=== PATIENT | male | born 1955 | race Caucasian/White ===

== ENCOUNTER 2025-04-29 23:03 | Observation (INO) ==
[2025-04-29 23:32] LABS: Basophils #(Absolute) Auto 0.1 (0.0-0.1); Basophils%(Percent) Auto 0.4 (0.0-1.3); Eosinophils#(Absolute)Auto 0.2 (0.0-0.3); Eosinophils%(Percent) Auto 1.5 % (0.0-4.0); Granulocytes % - Auto 74.2 % (49.1-73.1); Granulocytes#(Absolute)- Auto 11.2 (2.0-6.2); Hematocrit 35.5 % (41.3-50.1); Mean Corpuscular Volume 85.9 fl (81.9-96.5); Monocytes #(Absolute)- Auto 0.9 (0.2-0.8); Monocytes %(Percent)- Auto 6.2 % (4.5-10.7); Platelet Count 286 K/uL (142-355); White Blood Count 15.1 K/uL (3.7-9.6)
[2025-04-29] MEDS: IPRATROPIUM/ALBUTEROL SULFATE 3 ML AMPUL.NEB INH ONE (23:33)
[2025-04-29 23:38] LABS: Base Excess ABG 1.8 mmo1/L (-2-2); Oxygen Saturation ABG 97 % (92-100); PCO2 ABG 37 mmHg (35-45); PO2 ABG 90 mmHg (60-100); pH ABG 7.45 (7.35-7.45)
[2025-04-29 23:42] LABS: Potassium 4.2 mmol/L (3.6-5.2)
[2025-04-30] MEDS: HALOPERIDOL LACTATE 5 MG/ML VIAL IVP ONE (01:06)
[2025-04-30] MEDS ORDERED: ONDANSETRON HCL/PF 4 MG/2 ML VIAL INJ PRN (01:07)
[2025-04-30] MEDS ORDERED: ACETAMINOPHEN 500 MG TABLET PO PRN (01:07)
[2025-04-30] MEDS ORDERED: IBUPROFEN 800 MG TABLET PO PRN (01:07)
[2025-04-30] MEDS ORDERED: [UNRECOGNIZED DRUG - OTHER] PO SCH (01:30)
[2025-04-30] MEDS ORDERED: METHYLPREDNISOLONE 4 MG PO SCH (01:30)
--- NOTE | 2025-04-30 02:00 | Emergency Department Note ---
HPI - SOB/Dyspnea General Chief Complaint: SOB -Shortness of Breath Stated Complaint: SOB Time Seen by Provider: 04/29/25 23:15 Source: patient and EMS Mode of arrival: ambulance History of Present Illness HPI Narrative: 69 yo male presents via EMS with increasing dyspnea after being seen in the ED on 04/28/25 and being diagnosed with PNA, Patient states he feels as if he is unable to "take a 100% breath". Patient states he has started his medications he was prescribed but "they just aren't doing any good, I tell you they aren't doing any good". Patient appears extremely anxious, agitated, and angry at staff for no apparent reasoning. MD elicited complaint: Reports shortness of breath, pain with inspiration and anxiety Pertinent past history: Reports pneumonia Onset (ago): day(s) Context: Reports recent illness Timing: Reports constant Severity: moderate Exacerbating factors: Reports other (everything makes it worse. ) Relieving factors: Reports nothing Related Data Home oxygen amount: other (Patient is currently maintaining saturations of 96- 100% on RA, without respiratory distress or increased work of breathing. ) Home Medications Medication Instructions Recorded Confirmed carvedilol 3.125 mg tablet 3.125 mg PO BID 05/05/24 furosemide 40 mg tablet 40 mg PO DAILY 05/05/2404/19 hydralazine 25 mg tablet 25 mg PO BID 05/05/24 losartan 25 mg tablet 25 mg PO DAILY 05/05/2404/19 spironolactone 25 mg tablet 25 mg PO DAILY 05/05/24 Previous Rx's Medication Instructions Recorded levofloxacin 750 mg tablet 750 mg PO DAILY PNEUMONIA 7 days 04/28/25 #7 tabs methylprednisolone 4 mg tablets in See Rx Instructions PO .COMPLEX 04/28/25 a dose pack (Medrol (Anthony)) #21 ea Allergies Allergy/AdvReac Type Severity Reaction Status Date / Time No Known Drug Allergies Allergy Verified 04/28/25 04:19 Review of Systems Status of ROS 10 or more systems reviewed and unremark able except as noted in history and below Respiratory Reports: shortness of breath and pain on inspiration PFSH PFS Medical History COPD (chronic obstructive pulmonary disease) Congestive heart failure HTN (hypertension) Surgical History No history of previous surgery Social History Smoking status: current every day smoker What tobacco products do you use: cigarettes Packs per day: 1 Within the past year, how often did you have a drink containing alcohol: never Score interpretation: A score less than 4 is consistent with normal alcohol consumption. Non-prescribed substance use: cannabis (any form) What is your current living situation: I presently have a place to live Problems where you live: no known problems In the past 12 months, utilities in danger of being shut off: no In past 12 months, lack of transportation kept you from medical appts, meetings, work, or getting things needed for daily living: No How hard is it for you to pay for the very basics like food, housing, medical ca re, and heating: somewhat hard Past 12 mos, fear food will run out before able to buy more: never true In past 12 months, food didn't last until money to buy more: never true Are you following a diet prescribed by a doctor: No Are you following a special diet: No Do you want help finding or keeping work or a job: I do not need or want help Known occupational exposures/hazards: No Exam Exam: 69 yo male presents to ED extremely anxi ous, agitated, and angry in no acute respiratory distress, displaying no increased work of breathing, or nasal flaring. Constitutional: normal general appearance, no apparent distress and alert Vital Signs - 24 hr 04/29/25 23:17 04/29/25 23:34 Temperature 98.4 F Pulse Rate 90 Respiratory Rate 22 Blood Pressure 180/95 Pulse Oximetry 96 97 Oxygen Delivery Me thod Room Air HENMT: normocephalic, head/scalp atraumatic, hearing grossly normal bilaterally, external ears normal, nasal mucous membranes normal, external nose normal, oral mucous membranes normal and oropharynx normal Eyes: PERRL, EOMs intact bilaterally and conjunctivae normal Neck/C-Spine: visual inspection normal and trachea midline Lymph: no lymphadenopathy noted Chest: inspection of chest normal Respiratory: breath sounds decreased in the lower lobes bilaterally, No audible rhonchi, increased work of breathing accessory muscle usage or nasal flaring. Cardiovascular: normal heart rate noted, regular rhythm noted, no gallop, no rub, no murmur, no JVD and no clicks Gastrointestinal: abdomen normal to inspection, abdomen soft to palpation, nontender to palpation, nondistended, no masses, no pulsatile mass, no ascites and no hernia Genitourinary: no CVA tenderness Back/Pelvis: spine normal to inspection Extremities: normal to inspection, normal to palpation, no tenderness, full ROM, no joint enlargement and no deformity Neurology: no movement abnormality noted, gait normal, speech normal, coordination normal and GCS normal Psychiatry: anxious, and agitated for no apparent reason. Patient is being verbally harsh with all staff members. Course Course Hospital Course: Heplock labs ekg cxr abg IV medication Breathing txt admission. Vital Signs Vital signs: Vital Signs Temperature 98.4 F 04/29/25 23:17 Pulse Rate 90 04/29/25 23:17 Respiratory Rate 22 04/29/25 23:17 Blood Pressure 180/95 04/29/25 23:17 Pulse Oximetry 96 04/29/25 23:17 Oxygen Delivery Method Room Air 04/29/25 23:17 Temperature 98.4 F 04/29/25 23:17 Pulse Rate 90 04/29/25 23:17 Respiratory Rate 22 04/29/25 23:17 Blood Pressure 180/95 04/29/25 23:17 Pulse Oximetry 97 04/29/25 23:34 Oxygen Delivery Method Room Air 04/29/25 23:17 MDM - SOB/Dyspnea MDM Narrative Medical decision making narrative: PNA with failed outpatient treatment, PE SC, Respiratory failure, COPD, CHF ACute coronary syndrome Anxiety, Agitation, Differential Diagnosis Differential diagnosis: Likely acute exacerbation of chronic obstructive airways disease, congestive heart failure, community acquired pneumonia, asthma with exacerbation and pulmonary embolism Medical Records Attestation: I reviewed the patient's medical records. Lab Data Attestation: I reviewed the patient's lab results. Labs: Lab Results 04/29/25 04/29/25 04/29/25 Range/Units 23:18 23:18 23:20 WBC 15.1 H (3.7-9.6) K/uL RBC 4.1 L (4.40-5.80) M/uL Hgb 11.3 L (14.0-17.4) gm/dL Hct 35.5 L (41.3-50.1) % MCV 85.9 (81.9-96.5) fl MCH 27.4 L (27.6-33.7) pg MCHC 31.9 L (33.0-35.7) g/dl RDW 16.5 H (11.0-14.8) % Plt Count 286 (142-355) K/uL MPV 8.0 (6.0-10.4) fl Gran % 74.2 H (49.1-73.1) % Lymph % (Auto) 17.7 (17.6-39.05) % [place] % (Auto) 6.2 (4.5-10.7) % Eos % (Auto) 1.5 (0.0-4.0) % Baso % (Auto) 0.4 (0.0-1.3) Lymph # (Auto) 2.7 (0.8-2.9) [place] # (Auto) 0.9 H (0.2-0.8) Eos # (Auto) 0.2 (0.0-0.3) Baso # (Auto) 0.1 (0.0-0.1) Absolute Gran (auto) 11.2 H (2.0-6.2) D-Dimer 2290 H (100-600) ng/mL ABG pH 7.45 (7.35-7.45) ABG pCO2 37 (35-45) mmHg ABG pO2 90 103 (60-100) mmHg ABG PO2/FiO2 Ratio 0.87 ABG HCO3 25.7 (22-26) mmo1/L ABG Total CO2 26.8 mmo1/L ABG O2 Saturation 97 (92-100) % ABG Base Excess 1.8 (-2-2) mmo1/L A-a O2 Gradient 13 mmHg Respiratory Index 0.1 (0-1) FiO2 21 % Sodium 141 (136-145) mmol/L Potassium 4.2 (3.6-5.2) mmol/L Chloride 106.0 (98-107) mmol/L Carbon Dioxide 27 (21-32) mmol/L Anion Gap 8.0 (4-14) mEq/L BUN 25 H (7-18) mg/dL Creatinine 1.8 H (0.6-1.3) mg/dL Estimated GFR 40.0 (>59.9) Glucose 105 (70-110) mg/dL Calcium 8.9 (8.5-10.1) mg/dL Total Bilirubin 0.48 (0.0-1.0) mg/dL AST 29 (15-37) U/L ALT 35 (30-65) U/L Alkaline Phosphatase 54 (50-136) U/L Total Protein 7.0 (6.4-8.2) g/dL Albumin 3.1 L (3.4-5.0) g/dL COVID-19 ([facility]) Not detected (Not Detectd) Respiratory Virus Ag Negative (Negative) ABG Data Interpretation: Primary respiratory alkalosis, chronic Imaging Data Imaging ordered: Chest x-ray Attestation: I personally reviewed and interpreted this imaging study as follows: My impression: worsening consolidation in the right lower lobes Discharge Plan Discharge Patient Disposition: Admitted As Observation Clinical Impression: Community acquired pneumonia, Acute dyspnea, Agitation states as acute reaction to exceptional (gross) stress, Anxiety Time of Disposition: 01:06
[2025-04-30] MEDS: LORazepam 1 MG TABLET PO ONE (04:48)
[2025-04-30] MEDS: FUROSEMIDE 20 MG/2 ML VIAL IV ONE (06:09)
[2025-04-30] MEDS: CEFTRIAXONE SODIUM 1 GM in 0.9 % SODIUM CHLORIDE MB+ 50 ML IV ONE (06:27)
[2025-04-30] MEDS ORDERED: 0.9 % SODIUM CHLORIDE 250 ML IV ONE (06:43)
[2025-04-30] MEDS ORDERED: VANCOMYCIN HCL 1,000 MG VIAL IV ONE (06:43)
[2025-04-30] MEDS: VANCOMYCIN HCL 1,000 MG in 0.9 % SODIUM CHLORIDE 250 ML IV SCH (06:44)
[2025-04-30 07:00] LABS: INR 1.08
[2025-04-30] MEDS: [UNRECOGNIZED DRUG - OTHER] IV SCH (07:48)
[2025-04-30] MEDS: ASPIRIN 325 MG TABLET PO SCH (08:46)
[2025-04-30] MEDS: NITROGLYCERIN 1 GM OINT...G. TD SCH (08:47)
[2025-04-30] MEDS: CLOPIDOGREL BISULFATE 75 MG TABLET PO SCH (08:47)
[2025-04-30] MEDS ORDERED: SPIRONOLACTONE 25 MG PO SCH (09:00)
[2025-04-30] MEDS: LOSARTAN POTASSIUM 50 MG TABLET PO SCH (09:14)
[2025-04-30] MEDS: HYDRALAZINE HCL 25 MG TABLET PO SCH (09:15)
[2025-04-30] MEDS: FUROSEMIDE 40 MG TABLET PO SCH (09:16)
[2025-04-30] MEDS: PANTOPRAZOLE SODIUM 40 MG TABLET.DR PO SCH (09:16)
[2025-04-30] MEDS: SPIRONOLACTONE 50 MG TABLET PO SCH (09:17)
[2025-04-30] MEDS: carvediloL 3.125 MG TABLET PO SCH (09:19)
--- NOTE | 2025-04-30 09:25 | Short Stay Summary ---
H&P: HPI History of Present Illness Chief complaint: PNA with failed outpatient treatment, dyspnea, michael Narrative: 69-year-old patient came into the ER with a weeklong history of shortness of breath especially when he is riding his bicycle. Was seen in the ER on 04/28/2025 was slightly to be admitted at that time he left AMA stating he was not going to stay. Returned on 612 for continued shortness of breath and difficulty breathing and a feeling of impending doom. Patient states that he is urinating okay is taking his water pills as blood pressure medicine without any relief of his symptoms. He continues to smoke at least a pack a day as well as alcohol and other recreational drugs. Admits to cocaine use last time he is not certain may have been mixed with his roll about 2-3 days ago. Patient carlos manuel defensive about alcohol and drug use. Review of Systems Status of ROS 10 or more systems reviewed and unremark able except as noted in history and below Constitutional Reports: change in weight, fatigue, malaise and change in sleep pattern; Denies: fever, chills or night sweats Eyes Denies: change in vision, blurry vision, blind spots, light sensitivity or eye discomfort Ears, nose, mouth, and throat Denies: throat pain, neck pain, throat swelling, difficulty swallowing, hoarseness, mouth pain or swelling of lips/tongue Cardiovascular Reports: chest pain (This a.m. started around 4 and continued shortness of breath), palpitations, swelling of feet/ankles, lightheadedness and shortness of breath with exertion Respiratory Reports: shortness of breath, cough and pain on inspiration; Denies: wheezing, stridor or change in phlegm color Gastrointestinal Reports: nausea, heartburn, constipation and bloating; Denies: abdominal pain, vomiting, coffee grounds in vomit, diarrhea or difficulty swallowing Genitourinary Denies: painful urination, urinary frequency, urinary urgency or blood in urine Musculoskeletal Reports: extremity swelling; Denies: back pain, neck pain, extremity pain, joint pain or limited range of motion Integumentary/Breast Denies: rash, itching, redness, skin pain, skin tenderness, skin swelling, sores or new lesion Neurological Reports: behavioral changes and difficulty communicating thoughts; Denies: headache, numbness in extremities, weakness in extremities, lack of coordination, dizziness, vertigo, confusion, slurred speech or seizure-like activity Psychiatric Reports: anxiety, panic attacks, hopelessness, irritability and difficulty concentrating; Denies: mood swings, change in sleep pattern, loss of interest, paranoia, memory loss, visual hallucinations, auditory hallucinations, tactile hallucinations, suicidal ideation or homicidal ideation Endocrine Reports: fatigue; Denies: excessive urination, excessive thirst or cold intolerance Hematologic/Lymphatic Denies: easy bruising, easy bleeding or enlarged lymph nodes Allergic/Immunologic Denies: hives, throat swelling, tongue swelling, facial swelling or wheezing [facility] Medical History (Updated 04/30/25 @ 09:49 by Brittney Forde DO) Chronic renal insufficiency, stage III (moderate) Nicotine dependence with current use Anxiety Hypertensive emergency Cocaine abuse ETOH abuse COPD (chronic obstructive pulmonary disease) Congestive heart failure HTN (hypertension) Surgical History No history of previous surgery Social History Smoking status: current every day smoker What tobacco products do you use: cigarettes Packs per day: 1 Within the past year, how often did you have a drink containing alcohol: never Score interpretation: A score less than 4 is consistent with normal alcohol consumption. Non-prescribed substance use: cannabis (any form) What is your current living situation: I presently have a place to live Problems where you live: no known problems In the past 12 months, utilities in danger of being shut off: no In past 12 months, lack of transportation kept you from medical appts, meetings, work, or getting things needed for daily living: No How hard is it for you to pay for the very basics like food, housing, medical care, and heating: somewhat hard Past 12 mos, fear food will run out before able to buy more: never true In past 12 months, food didn't last until money to buy more: never true Are you following a diet prescribed by a doctor: No Are you following a special diet: No Do you want help finding or keeping work or a job: I do not need or want help Known occupational exposures/hazards: No Highest level of school completed/degree received: high school Feel stressed/tense/nervous/anxious/difficulty sleeping: not at all Life stressor details: His current medical condition Gender Identity: male Meds Home Medications and Allergies Home Medications Medication Instructions Recorded Confirmed Type carvedilol 3.125 mg tablet 3.125 mg PO BID 05/05/24 History furosemide 40 mg tablet 40 mg PO DAILY 05/05/2404/19 History hydralazine 25 mg tablet 25 mg PO BID 05/05/24 History losartan 25 mg tablet 25 mg PO DAILY 05/05/2404/19 History spironolactone 25 mg tablet 25 mg PO DAILY 05/05/24 History levofloxacin 750 mg tablet 750 mg PO DAILY PNEUMONIA 7 days 04/28/25 04/30/25 Rx #7 tabs methylprednisolone 4 mg tablets in See Rx Instructions PO .COMPLEX 04/28/25 04/30/25 Rx a dose pack (Medrol (Anthony)) #21 ea Allergies Allergy/AdvReac Type Severity Reaction Status Date / Time No Known Drug Allergies Allergy Verified 04/28/25 04:19 Exam Exam: 69 yo male presents to ED extremely anxi ous, agitated, and angry in no acute respiratory distress, displaying no increased work of breathing, or nasal flaring. Constitutional: abnormal general appearance (disheveled), (chronically ill) and (frail appearing), distress noted (mild) and (respiratory), average body habitus, limitations noted (physical limitations) and level of alertness abnormal (lethargic) (ativan given to patient for anxiety and aggitation) Vital Signs - 24 hr 04/29/25 23:17 04/29/25 23:30 04/29/25 23:34 Temperature 98.4 F Pulse Rate 90 87 Pulse Rate [Bilate ral] Respiratory Rate 22 20 Blood Pressure 180/95 178/94 Blood Pressure [Le ft Arm] Pulse Oximetry 96 99 97 Oxygen Delivery Me thod Room Air Room Air Oxygen Flow Rate Fraction of Inspir ed Oxygen 04/30/25 00:00 04/30/25 00:30 04/30/25 01:00 Temperature Pulse Rate 90 85 84 Pulse Rate [Bilate ral] Respiratory Rate 19 20 19 Blood Pressure 169/90 188/90 180/95 Blood Pressure [Le ft Arm] Pulse Oximetry 96 96 96 Oxygen Delivery Me thod Room Air Room Air Room Air Oxygen Flow Rate Fraction of Inspir ed Oxygen 04/30/25 01:30 04/30/25 02:00 04/30/25 02:17 Temperature Pulse Rate 81 78 Pulse Rate [Bilate ral] Respiratory Rate 20 20 Blood Pressure 179/89 185/91 Blood Pressure [Le ft Arm] Pulse Oximetry 96 Oxygen Delivery Me thod Room Air Room Air Oxygen Flow Rate Fraction of Inspir ed Oxygen 04/30/25 03:44 04/30/25 05:02 04/30/25 08:00 Temperature 97.8 F 97.3 F L Pulse Rate Pulse Rate [Bilate ral] 84 80 Respiratory Rate 20 21 Blood Pressure Blood Pressure [Le ft Arm] 187/88 181/86 Pulse Oximetry 96 97 98 Oxygen Delivery Me thod Room Air Nasal Cannula Nasal Cannula Oxygen Flow Rate 3 3 Fraction of Inspir ed Oxygen 32 04/30/25 08:47 Temperature Pulse Rate Pulse Rate [Bilate ral] Respiratory Rate Blood Pressure 180/100 Blood Pressure [Le ft Arm] Pulse Oximetry Oxygen Delivery Me thod Oxygen Flow Rate Fraction of Inspir ed Oxygen HENMT: normocephalic, head/scalp atraumatic, hearing grossly normal bila terally, external ears normal, TMs abnormal, nasal mucous membranes normal, external nose normal, oral mucous membranes abnormal, oropharynx normal and dentition abnormal Eyes: PERRL, EOMs intact bilaterally, conjunctivae normal, no scleral icterus, papilledema noted and periorbital findings normal Neck/C-Spine: visual inspection normal and trachea midline Lymph: no lymphadenopathy noted and no lymphedema noted Chest: inspection of chest normal and palpation of chest normal Respiratory: breath sounds unequal, normal respiratory effort, auscultation abnormal (diminished breath sound) and (bronchial breath sounds), wheezing noted, no rales, no retractions and no use of accessory muscles breath sounds decreased in the lower lobes bilaterally, No audible rhonchi, increased work of breathing accessory muscle usage or nasal flaring. Cardiovascular: normal heart rate noted, rhythm abnormal (ectopic beats), no gallop, no rub, no murmur, no JVD, no clicks, peripheral pulses as noted: and no bruits noted Gastrointestinal: abdomen normal to inspection, abdomen soft to palpation, nontender to palpation, nondistended, normoactive bowel sounds, hepatosple nomegaly noted, ascites noted and no hernia Genitourinary: no CVA tenderness and bladder normal to palpation Back/Pelvis: spine abnormal to inspection, no thoracic spine tenderness, no lumbar spine tenderness, thoracic spine ROM normal and lumbar spine ROM normal Extremities: abnormal to inspection (patient reports swellign but not noted on exam), normal to palpation, no tenderness, full ROM, joint enlargement noted and no deformity Neurology: recreation therapy aide II-XII intact, no movement abnormality noted, no focal motor deficit noted, sensory deficit noted, gait normal, speech abnormality noted (slurred), coordination normal, no pronator drift noted and GCS normal Psychiatry: Mental Status Exam documented within this Exam's Psych section mental status abnormal, oriented x3, thought process abnormality noted, uncooperative, affect abnormality noted (anxious) and psychomotor abnormality noted (agitated) and (restless) anxious, and agitated for no apparent reason. Patient is being verbally harsh with all staff members. Feel stressed/tense/nervous/anxious/difficulty sleeping: decline to answer Skin: skin color abnormal Reports (pale), no rash, no lesions, ecchymosis noted, no wounds, no lacerations, skin turgor abnormal, no jaundice, no petechiae, no mottling, nails abnormality noted and alopecia noted Assessment and Plan Assessment and Plan (1) NSTEMI, initial episode of care: Code(s): I21.4 - Non-ST elevation (NSTEMI) myocardial infarction (2) Pneumonia: Qualifiers: Laterality: bilateral Lung location: unspecified part of lung Pneumonia type: due to unspecified organism Qualified Code(s): J18.9 - Pneumonia, unspecified organism Code(s): J18.9 - Pneumonia, unspecified organism (3) Hypertensive emergency: Code(s): I16.1 - Hypertensive emergency (4) Congestive heart failure: Qualifiers: Heart failure type: other Qualified Code(s): I50.9 - Heart failure, unspecified Code(s): I50.9 - Heart failure, unspecified (5) ETOH abuse: Code(s): F10.10 - Alcohol abuse, uncomplicated (6) Cocaine abuse: Code(s): F14.10 - Cocaine abuse, uncomplicated (7) HTN (hypertension): Qualifiers: Hypertension type: primary hypertension Qualified Code(s): I10 - Essential (primary) hypertension Code(s): I10 - Essential (primary) hypertension (8) Anxiety: Code(s): F41.9 - Anxiety disorder, unspecified (9) Nicotine dependence with current use: Code(s): F17.200 - Nicotine dependence, unspecified, uncomplicated (10) Encounter for smoking cessation counseling: Code(s): Z71.6 - Tobacco abuse counseling (11) Anemia: Qualifiers: Anemia type: other cause Other causes of anemia: other cause, not classified Qualified Code(s): D64.89 - Other specified anemias Code(s): D64.9 - Anemia, unspecified (12) Chronic renal insufficiency, stage III (moderate): Qualifiers: Chronic kidney disease stage 3 subtype: stage 3b (GFR 30-44) Qualified Code(s): N18.32 - Chronic kidney disease, stage 3b Code(s): N18.30 - Chronic kidney disease, stage 3 unspecified (13) Hypoalbuminemia: Code(s): E88.09 - Other disorders of plasma-protein metabolism, not elsewhere classified Plan Cardiac monitoring and continuous pulse ox Serial EKGs Serial troponins Rocephin 1 g IV daily Zithromax 500 mg IV daily DuoNebs every 6 hours Bumex IV 2 mg since he is on Lasix at home without success of removing effusions and work on decreasing blood pressure to help diurese better Nitro 1 inch in anterior chest wall Coreg 6.25 mg given this a.m. prior to transfer to [place] for NSTEMI and further evaluation and treatment With hydralazine 10 mg IV x 1 Gave patient his losartan 25 mg p.o. daily as well Diet n.p.o. in case taking to This a.m. Results Labs Labs: CBC 04/29/25 Range/Units 23:20 WBC 15.1 H (3.7-9.6) K/uL RBC 4.1 L (4.40-5.80) M/uL Hgb 11.3 L (14.0-17.4) gm/dL Hct 35.5 L (41.3-50.1) % Plt Count 286 (142-355) K/uL Gran % 74.2 H (49.1-73.1) % Lymph % (Auto) 17.7 (17.6-39.05) % [place] % (Auto) 6.2 (4.5-10.7) % Eos % (Auto) 1.5 (0.0-4.0) % Baso % (Auto) 0.4 (0.0-1.3) Lymph # (Auto) 2.7 (0.8-2.9) [place] # (Auto) 0.9 H (0.2-0.8) Eos # (Auto) 0.2 (0.0-0.3) Baso # (Auto) 0.1 (0.0-0.1) Absolute Gran (auto) 11.2 H (2.0-6.2) CMP 04/29/25 23:20 Sodium 141 Potassium 4.2 Chloride 106.0 Carbon Dioxide 27 BUN 25 H Creatinine 1.8 H Glucose 105 Calcium 8.9 Liver Function 04/29/25 Range/Units 23:20 Total Bilirubin 0.48 (0.0-1.0) mg/dL AST 29 (15-37) U/L ALT 35 (30-65) U/L Alkaline Phosphatase 54 (50-136) U/L Albumin 3.1 L (3.4-5.0) g/dL ABG ABG results: 04/29/25 23:18 ABG pH 7.45 ABG pCO2 37 ABG pO2 103 ABG HCO3 25.7 ABG Total CO2 26.8 ABG O2 Saturation 97 ABG Base Excess 1.8 Attestation: I have reviewed the pertinent ABG results. Pulse Oximetry Attestation: I have reviewed the pertinent pulse oximetry results. ECG Attestation: I have reviewed the pertinent ECG results. Prior ECG tracings: available for review Imaging Imaging ordered: Chest x-ray Radiologist's impression: FRONTAL AND LATERAL VIEW CHEST X-RAY HISTORY: Shortness of breath COMPARISON: 04/28/2025 FINDINGS: There is persistent multifocal consolidation seen in the bilateral lower lung zones which does not appear significantly changed from prior study. This is also seen is increased opacification of the retrocardiac space overlying the lower thoracic spine on the lateral view. The heart size is within normal limits. The mediastinum is unremarkable. There is no evidence of pleural effusion or gross pneumothorax. The trachea is midline. IMPRESSION: 1. There is persistent multifocal consolidation seen in the bilateral lower lung zones which does not appear significantly changed from prior study. This is also seen is increased opacification of the retrocardiac space overlying the lower thoracic spine on the lateral view. This may represent acute or chronic airspace disease. Follow-up to complete resolution may be obtained as clinically indicated. CTA scheduled for this am DS: Providers Provider Date of admission: 04/30/25 01:06 Primary care physician: ABIEL GAN MD Admitting clinician: Valdez Santos Attending physician on admission: Brittney Forde Attending physician on discharge: Brittney Forde Discharging clinician: Brittney Forde Anticipated date of discharge: 04/30/25 DS: Summary Hospital Course Hospital Course: Patient remained anxious on the ER for and in the hospital was given Ativan for anxiety and agitation developed chest pains were about 4:00 so troponin was obtained and an EKG which shows some ischemic changes in 6 of the leads as well as troponin elevation of 825. There Shelbieter discussed patient with a camera person who advised heparin. Eventually patient was started on nitro drip to help control his blood pressure as well as Nitropaste and hydralazine 10 mg IV Plavix 150 and aspirin 325 mg. The x-ray in the ER showed persistent multifocal consolidation in bilateral lower lung zones that have not improved or worsened since 04/28/2025 evaluation and has increased over opacification and retrocardiac space. Patient still remains agitated and difficult to work with throughout hospital stay to the medications needed for the NSTEMI SFR has remained agreeable to transfer to [place] for further evaluation and treatment Time spent discussing smoking cessation with patient: 3 to 10 minutes Status at Discharge Functional status at discharge: independent ambulation (altered secondary to ativan) Overall status at discharge: patient is not back to baseline Time Spent with Patient Time attestation: Total time spent providing and/or coordinating discharge services: 48 Time spent: greater than 30 minutes Discharge Plan Discharge Disposition: Xfer Short-Term Hosp Condition: Other Anticipated Discharge Date/Time: 04/30/25 09:47 Discharge Medications: No Action levofloxacin 750 mg tablet 750 mg PO DAILY 7 Days Qty: 7 0RF methylprednisolone [Medrol (Anthony)] 4 mg tablets,dose pack See Rx Instructions .ROUTE .COMPLEX Qty: 21 0RF Rx Instructions: orally per package directions furosemide 40 mg tablet 40 mg PO DAILY hydralazine 25 mg tablet 25 mg PO BID spironolactone 25 mg tablet 25 mg PO DAILY carvedilol 3.125 mg tablet 3.125 mg PO BID losartan 25 mg tablet 25 mg PO DAILY Activity: increase activity as tolerated Diet: other Diet Detail: NPO Hospital Course: Patient remained anxious on the ER for and in the hospital was given Ativan for anxiety and agitation developed chest pains were about 4:00 so troponin was obtained and an EKG which shows some ischemic changes in 6 of the leads as well as troponin elevation of 825. There Demeter discussed patient with a camera person who advised heparin. Eventually patient was started on nitro drip to help control his blood pressure as well as Nitropaste and hydralazine 10 mg IV Plavix 150 and aspirin 325 mg. The x-ray in the ER showed persistent multifocal consolidation in bilateral lower lung zones that have not improved or worsened since 04/28/2025 evaluation and has increased over opacification and retrocardiac space. Patient still remains agitated and difficult to work with throughout hospital stay to the medications needed for the NSTEMI SFR has remained agreeable to transfer to [place] for further evaluation and treatment Print Language: Romansh Activity Restrictions/Additional Instructions: [facility] Mar[facility] Have difficulty with arranging a bed will reexam at 12:00 as well as I will try to contact cardiology and by day and see if they can give me a hand in the transfer Follow-Ups: ABIEL GAN MD [Primary Care Provider, Medical]
[2025-04-30] MEDS ORDERED: HYDRALAZINE HCL 20 MG/ML VIAL IVP ONE (09:28)
[2025-04-30 10:02] LABS: Amphetamine Screen Urine NEG. (NEGATIVE); Cannabinoid Screen Urine NEG. (NEGATIVE); Cocaine Screen Urine NEG. (NEGATIVE); Methadone Screen Urine NEG. (NEGATIVE); Opiate Screen Urine NEG. (NEGATIVE)
[2025-04-30 10:10] LABS: Urine Amorphous Sediment Few (Negative); Urine Appearance CLEAR (CLEAR); Urine Blood TRACE (NEG - TRACE); Urine Color PALE YELLOW (STRAW/YELL.); Urine Urobilinogen Normal (NORMAL); Urine Yeast Negative (Negative)
[2025-04-30] MEDS: BUMETANIDE 1 MG/4 ML VIAL IVP ONE (11:19)
[2025-04-30] MEDS: levalbuterol HCL 1.25 MG/3 ML VIAL.NEB INH SCH (11:25)
[2025-04-30] MEDS ORDERED: 0.9 % SODIUM CHLORIDE 500 ML IV ONE (11:57)
[2025-04-30] MEDS: NITROGLYCERIN IN 5 % DEXTROSE 50 MG/250 ML INFUS..BTL IV ONE (12:05)
[2025-04-30] MEDS: carvediloL 6.25 MG TABLET PO SCH (12:18)
[2025-04-30] MEDS ORDERED: CEFTRIAXONE SODIUM 1 GM in 0.9 % SODIUM CHLORIDE MB+ 50 ML IV ONE (12:25)
[2025-04-30] MEDS ORDERED: AZITHROMYCIN 500 MG 500 MG in 0.9 % SODIUM CHLORIDE 250 ML IV SCH (12:25)
[2025-04-30 12:29] VITALS: PULSE 65; RESP 19; TEMP 97.5
[2025-04-30 13:07] VITALS: BP 162/72
[2025-05-01] MEDS ORDERED: VANCOMYCIN HCL 1,000 MG in 0.9 % SODIUM CHLORIDE 250 ML IV SCH (06:30)
== END 2025-04-30 12:50 | disposition short-term general hospital (02) ==
LOC: ED 23:03 → MS 23:03
PROVIDERS: ADMIT Nurse Practitioner Family; ATTEND Family Medicine
DX: N18.32 Chronic kidney disease, stage 3b; Z71.6 Tobacco abuse counseling; J18.9 Pneumonia, unspecified organism; F17.210 Nicotine dependence, cigarettes, uncomplicated; I21.4 Non-ST elevation (NSTEMI) myocardial infarction; I16.1 Hypertensive emergency; Z79.899 Other long term (current) drug therapy; E88.09 Other disorders of plasma-protein metabolism, not elsewhere classified; F10.10 Alcohol abuse, uncomplicated; J44.0 Chronic obstructive pulmonary disease with (acute) lower respiratory infection; F14.10 Cocaine abuse, uncomplicated; Z78.9 Other specified health status; I13.0 Hypertensive heart and chronic kidney disease with heart failure and stage 1 through stage 4 chronic kidney disease, or unspecified chronic kidney disease; R45.1 Restlessness and agitation; F41.9 Anxiety disorder, unspecified; I50.9 Heart failure, unspecified; D63.1 Anemia in chronic kidney disease